=== PATIENT | male | born 1960 | race Caucasian/White ===

== ENCOUNTER 2019-02-14 14:35 | Emergency (ER) | payer BC, OTHER ==
[2019-02-14] MEDS ORDERED: ONDANSETRON 4 MG TAB.RAPDIS PO ONE (15:35)
--- NOTE | 2019-02-14 15:35 | ER Document Report ---
ED Medical Screen (RME) - General Chief Complaint: Lower Abdominal Pain Stated Complaint: PAIN IN RIGHT SIDE Time Seen by Provider: 02/14/19 15:33 Mode of Arrival: Ambulatory Information source: Patient Notes: 58-year-old male presented to ED for complaint of right sided abdominal pain. He states it is a little better now after he went and had a bowel movement and urinated. There is still tenderness to palpation to the right side of his abdomen. He states he has a history of high blood pressure and kidney stones so he was concerned about the pain. Patient states he has had some nausea but no vomiting diarrhea or fever. He states the pain started last night. I have greeted and performed a rapid initial assessment of this patient. A comprehensive ED assessment and evaluation of the patient, analysis of test results and completion of medical decision making process will be conducted by an additional ED providers. Dictation of this chart was performed using voice recognition software; therefore, there may be some unintended grammatical errors. TRAVEL OUTSIDE OF THE [place] IN LAST 30 DAYS: No - Related Data Allergies/Adverse Reactions: No Known Allergies Allergy (Verified 02/14/19 14:40) Past Medical History - Past Medical History Cardiac Medical History: Reports: Hx Hypertension - Elevated blood pressure without specific diagnosis of hypertension Denies: Hx Congestive Heart Failure, Hx DVT, Hx Heart Attack, Hx Hypercholesterolemia, Hx Pulmonary Embolism Pulmonary Medical History: Denies: Hx Asthma, Hx COPD Neurological Medical History: Denies: Hx Seizures Endocrine Medical History: Denies: Hx Diabetes Mellitus Type 1, Hx Diabetes Mellitus Type 2, Hx Hyperthyroidism, Hx Hypothyroidism Renal/ Medical History: Reports: Hx Kidney Stones GI Medical History: Denies: Hx Cirrhosis, Hx Gastroesophageal Reflux Disease, Hx Hepatitis Musculoskeltal Medical History: Denies Hx Arthritis Psychiatric Medical History: Denies: Hx Depression Infectious Medical History: Denies: Hx Hepatitis Physical Exam - Vital signs Vitals: Temp Pulse Resp BP Pulse Ox 98.2 F 64 27 H 153/80 H 97 02/14/19 14:43 02/14/19 14:43 02/14/19 14:43 02/14/19 14:43 02/14/19 14:43 Course - Vital Signs Vital signs: Temp Pulse Resp BP Pulse Ox 98.2 F 64 27 H 153/80 H 97 02/14/19 14:43 02/14/19 14:43 02/14/19 14:43 02/14/19 14:43 02/14/19 14:43
[2019-02-14 16:50] LABS: ABSOLUTE LYMPHOCYTES (AUTO) 1.4 10^3/uL (0.5-4.7); ABSOLUTE MONOCYTES (AUTO) 0.7 10^3/uL (0.1-1.4); ABSOLUTE NEUT (AUTO) 15.8 10^3/uL (1.7-8.2); BASOPHILS % (AUTO) 0.3 % (0-2); HEMATOCRIT 45.5 % (37.9-51.0); LYMPHOCYTES % (AUTO) 7.7 % (13-45); MEAN CORPUSCULAR HEMOGLOBIN 30.4 pg (27.0-33.4); MEAN CORPUSCULAR VOLUME 92 fl (80-97); MONOCYTES % (AUTO) 3.9 % (3-13); PLATELET COUNT 396 10^3/uL (150-450); RED BLOOD COUNT 4.94 10^6/uL (4.35-5.55); RED CELL DISTRIBUTION WIDTH 14.1 % (11.5-14.0); SEGMENTED NEUTROPHILS % (AUTO) 88.1 % (42-78); TOTAL CELLS COUNTED % (AUTO) 100 %; WHITE BLOOD COUNT 17.9 10^3/uL (4.0-10.5)
[2019-02-14 16:54] LABS: APPEARANCE,URINE SLIGHTLY-CLOUDY; BILIRUBIN,URINE NEGATIVE (NEGATIVE); CALCIUM OXALATE CRYSTALS,URINE RARE /HPF; COLOR,URINE YELLOW; GLUCOSE, URINE NEGATIVE (NEGATIVE); KETONES,URINE NEGATIVE (NEGATIVE); LEUKOCYTE ESTERASE,URINE NEGATIVE (NEGATIVE); NITRITE,URINE NEGATIVE (NEGATIVE); PROTEIN,URINE NEGATIVE (NEGATIVE); URINE SPECIFIC GRAVITY 1.016; UROBILINOGEN,URINE NEGATIVE mg/dL (<2.0)
--- NOTE | 2019-02-14 17:08 | ER Document Report ---
ED General - General Chief Complaint: Lower Abdominal Pain Stated Complaint: PAIN IN RIGHT SIDE Time Seen by Provider: 02/14/19 15:33 Primary Care Provider: CASEY CARDOZA PA-C [Primary Care Provider] - Follow up as needed Mode of Arrival: Ambulatory Notes: Patient is a 58-year-old male with history of kidney stones that presents to the emergency department for chief complaint of right-sided abdominal pain. Patient reports that he started having right-sided abdominal pain earlier today that he described as severe, he had associated nausea and vomiting without much relief of his symptoms after vomiting. He states it does feel somewhat different than his prior kidney stones. Denies having any dysuria, but did have urinary frequency. Denies any any fevers, chills, night sweats, diaphoresis. He currently rates his pain as a 2 out of 10 stating that his pain is much improved. He denies having any chest pain, shortness of breath, difficulty breathing. Past Medical History: Kidney stones Past Surgical History: Lithotripsy Social History: Admits to smoking cigarettes, denies alcohol or drug use. Family History: Reviewed and noncontributory for presenting illness Allergies: Reviewed, see documented allergy list. REVIEW OF SYSTEMS: Other than noted above, the 12 point review of systems was reviewed with the patient and were negative, all pertinent findings are included in the HPI. PHYSICAL EXAMINATION: Vital signs reviewed, nursing noted reviewed. GENERAL: Well-appearing, well-nourished and in no acute distress. HEAD: Atraumatic, normocephalic. EYES: Eyes appear normal, extraocular movements intact, sclera anicteric, conjunctiva are normal. ENT: nares patent, oropharynx clear without exudates. Moist mucous membranes. NECK: Normal range of motion, supple without lymphadenopathy LUNGS: Breath sounds clear to auscultation bilaterally and equal. No wheezes rales or rhonchi. HEART: Regular rate and rhythm without murmurs ABDOMEN: Soft, nontender, normoactive bowel sounds. No rebound, guarding, or rigidity. No masses appreciated. EXTREMITIES: Nontender, good range of motion, no pitting or edema. NEUROLOGICAL: No focal neurological deficits. Moves all extremities spontaneously Motor and sensory grossly intact on exam. PSYCH: Normal mood, normal affect. SKIN: Warm, Dry, normal turgor, no rashes or lesions noted on exposed skin TRAVEL OUTSIDE OF THE [place] IN LAST 30 DAYS: No - Related Data Allergies/Adverse Reactions: No Known Allergies Allergy (Verified 02/14/19 14:40) Past Medical History - General Information source: Patient - Social History Smoking Status: Current Some Day Smoker Family History: None, Hypertension, Malignancy Patient has suicidal ideation: No Patient has homicidal ideation: No - Past Medical History Cardiac Medical History: Reports: Hx Hypertension - Elevated blood pressure without specific diagnosis of hypertension Denies: Hx Congestive Heart Failure, Hx DVT, Hx Heart Attack, Hx Hypercholesterolemia, Hx Pulmonary Embolism Pulmonary Medical History: Denies: Hx Asthma, Hx COPD Neurological Medical History: Denies: Hx Seizures Endocrine Medical History: Denies: Hx Diabetes Mellitus Type 1, Hx Diabetes Mellitus Type 2, Hx Hyperthyroidism, Hx Hypothyroidism Renal/ Medical History: Reports: Hx Kidney Stones. Denies: Hx Peritoneal Dialysis GI Medical History: Denies: Hx Cirrhosis, Hx Gastroesophageal Reflux Disease, Hx Hepatitis Musculoskeletal Medical History: Denies Hx Arthritis Psychiatric Medical History: Denies: Hx Depression Infectious Medical History: Denies: Hx Hepatitis Physical Exam - Vital signs Vitals: Temp Pulse Resp BP Pulse Ox 98.2 F 64 27 H 153/80 H 97 02/14/19 14:43 02/14/19 14:43 02/14/19 14:43 02/14/19 14:43 02/14/19 14:43 Course - Re-evaluation Re-evalutation: Patient seen and examined vital signs reviewed. Laboratory data and/or imaging were ordered as appropriate for the patient's presenting symptoms and complaint, with consideration of any critical or life threatening conditions that may be associated with their obtained history and exam as noted above. Results were reviewed when available and demonstrated recently passed stone in the bladder, or at the UVJ, noted to have leukocytosis, patient's pain was controlled, he declined any need for pain medication on my evaluation. The patient was re-evaluated and was stable, pain was still controlled Evaluation was most consistent with ureteral stone, recently passed, mild hydronephrosis, without significant kidney injury, no evidence of infection on urinalysis, but did have hematuria, will discharge the patient home on Flomax and advised to follow-up with his urologist. Results were discussed with the patient at this point, after careful considera tion I feel that that patient can be discharged from the emergency department, the patient was educated treatments and reasons to return to the emergency department based on their presumed diagnosis as noted above, they were advised to followup with a primary care physician in 2-3 days. Patient was agreeable to plan of care. *Note is created using voice recognition software and may contain spelling, syntax or grammatical errors. Laboratory 02/14/19 02/14/19 02/14/19 15:15 16:20 16:20 WBC 17.9 H RBC 4.94 Hgb 15.0 Hct 45.5 MCV 92 MCH 30.4 MCHC 33.0 RDW 14.1 H Plt Count 396 Seg Neutrophils % 88.1 H Lymphocytes % 7.7 L Monocytes % 3.9 Eosinophils % 0.0 Basophils % 0.3 Absolute Neutrophils 15.8 H Absolute Lymphocytes 1.4 Absolute Monocytes 0.7 Absolute Eosinophils 0.0 Absolute Basophils 0.0 Sodium 143.7 Potassium 3.9 Chloride 104 Carbon Dioxide 26 Anion Gap 14 BUN 17 Creatinine 1.40 H Est GFR ( Amer) > 60 Est GFR (Non-Af Amer) 52 L Glucose 108 Calcium 10.5 H Total Bilirubin 0.9 Direct Bilirubin 0.3 Neonat Total Bilirubin Not Reportable Neonat Direct Bilirubin Not Reportable Neonat Indirect Bili Not Reportable AST 26 ALT 25 Alkaline Phosphatase 79 Total Protein 8.0 Albumin 5.0 Urine Color YELLOW Urine Appearance SLIGHTLY-CLOUDY Urine pH 5.0 Ur Specific Mcdonald 1.016 Urine Protein NEGATIVE Urine Glucose (UA) NEGATIVE Urine Ketones NEGATIVE Urine Blood LARGE H Urine Nitrite NEGATIVE Urine Bilirubin NEGATIVE Urine Urobilinogen NEGATIVE Ur Leukocyte Esterase NEGATIVE Urine WBC (Auto) 5 Urine RBC (Auto) >182 Squamous Epi Cells Auto <1 Calcium Oxalate Cr Auto RARE Urine Mucus (Auto) FEW Urine Ascorbic Acid 20 H Abdomen/Pelvis CT 02/14/19 17:16 IMPRESSION: 1. Small intrarenal calculi in the right kidney. Right hydro nephrosis and hydroureter. 3 mm calculus that is either in the bladder or in the intramural portion of the right ureter. 2. Large nonobstructing left renal calculi. 3. Diverticulosis coli. - Vital Signs Vital signs: Temp Pulse Resp BP Pulse Ox 98.3 F 68 19 149/81 H 97 02/14/19 18:56 02/14/19 18:56 02/14/19 18:56 02/14/19 18:56 02/14/19 14:43 - Laboratory Result Diagrams: 02/14/19 16:20 02/14/19 16:20 Laboratory results interpreted by me: 02/14/19 02/14/19 02/14/19 15:15 16:20 16:20 WBC 17.9 H RDW 14.1 H Seg Neutrophils % 88.1 H Lymphocytes % 7.7 L Absolute Neutrophils 15.8 H Creatinine 1.40 H Est GFR (Non-Af Amer) 52 L Calcium 10.5 H Urine Blood LARGE H Urine Ascorbic Acid 20 H Discharge - Discharge Clinical Impression: Ureteral stone Leukocytosis Qualifiers: Leukocytosis type: unspecified Qualified Code(s): D72.829 - Elevated white b lood cell count, unspecified Hematuria Qualifiers: Hematuria type: unspecified type Qualified Code(s): R31.9 - Hematuria, u nspecified Condition: Stable Disposition: HOME, SELF-CARE Instructions: Kidney Stone ([facility]) Additional Instructions: Please start taking the Flomax to help facilitate the passing of your kidney stone, please follow-up with your urologist as well. Prescriptions: Tamsulosin HCl [Flomax] 0.4 mg PO DAILY #14 cap.er.24h Referrals: CASEY CARDOZA PA-C [Primary Care Provider] - Follow up as needed
[2019-02-14 17:15] LABS: ALANINE AMINOTRANSFERASE 25 U/L (21-72); ALKALINE PHOSPHATASE 79 U/L (38-126); ANION GAP 14 (5-19); ASPARTATE AMINO TRANSFERASE 26 U/L (17-59); BILIRUBIN,DIRECT 0.3 mg/dL (0.0-0.4); BILIRUBIN,TOTAL 0.9 mg/dL (0.2-1.3); BLOOD UREA NITROGEN 17 mg/dL (7-20); CALCIUM 10.5 mg/dL (8.4-10.2); CARBON DIOXIDE 26 mmol/L (22-30); CHLORIDE 104 mmol/L (98-107); GLUCOSE 108 mg/dL (75-110); POTASSIUM 3.9 mmol/L (3.6-5.0); SODIUM 143.7 mmol/L (137-145)
--- NOTE | 2019-02-14 18:06 | RADIOLOGY REPORT (SQ) ---
EXAM DESCRIPTION: CT ABD/PELVIS NO ORAL OR IV COMPLETED DATE/TIME: 02/14/2019 5:23 pm REASON FOR STUDY: RIGHT FLANK PAIN, HX KIDNEY STONES COMPARISON: None. TECHNIQUE: CT scan of the abdomen and pelvis performed without intravenous or oral contrast. Images reviewed with lung, soft tissue, and bone windows. Reconstructed coronal and sagittal MPR images revi ewed. All images stored on PACS. All CT scanners at this facility use dose modulation, iterative reconstruction, and/or weight based d osing when appropriate to reduce radiation dose to as low as reasonably achievable (ALARA). [facility]: Dose Right [facility]: CareDose [facility]: Dose Right [facility]: Teradose 4D [facility]: Smart Daio RADIATION DOSE: CT Rad equipment meets quality standard of care and radiation dose reduction techniq ues were employed. CTDIvol: 10.8 mGy. DLP: 582 mGy-cm.mGy. LIMITATIONS: None. FINDINGS: LOWER CHEST: No significant findings. No nodules or infiltrates. NON-CONTRASTED LIVER, SPLEEN, ADRENALS: Evaluation limited by lack of IV contrast. No identified sign ificant masses. PANCREAS: No masses. No peripancreatic inflammatory changes. GALLBLADDER: No identified stones by CT criteria. No inflammatory changes to suggest cholecystitis. RIGHT KIDNEY AND URETER: Surgical changes. Tiny intrarenal calculi. Hydronephrosis. There is a 3 m m calculus that is either in the bladder or in the intramural portion of the right ureter. See image 76 series 3. LEFT KIDNEY AND URETER: There are some prominent intrarenal calculi. No hydronephrosis or hydrourete r. AORTA AND RETROPERITONEUM: No aneurysm. No retroperitoneal masses or adenopathy. BOWEL AND PERITONEAL CAVITY: Descending and sigmoid diverticulosis. No associated inflammation. No obvious bowel mass. APPENDIX: Normal. PELVIS, BLADDER, AND ABDOMINAL WALL:Calcification as described under right kidney, above. No pelvic mass or fluid collection. BONES: No significant findings. OTHER: No other significant finding. IMPRESSION: 1. Small intrarenal calculi in the right kidney. Right hydronephrosis and hydroureter. 3 mm calculus that is either in the bladder or in the intramural portion of the right ureter. 2. Large nonobstructing left renal calculi. 3. Diverticulosis coli. COMMENT: Quality ID # [id number]: Final reports with documentation of one or more dose reduction techniques (e.g., Automated exposure control, adjustment of the mA and/or kV according to patient size, use of iterative reconstruction technique) TECHNICAL DOCUMENTATION: JOB ID: [id number] [employer]- All Rights Reserved Reading location - IP/workstation name: [email or web address]
[2019-02-14 18:58] VITALS: BP 149/81
== END 2019-02-14 18:56 | disposition home or self-care (01) ==
LOC: ER 14:35
DX: N20.1 Calculus of ureter (principal); D72.829 Elevated white blood cell count, unspecified; R31.9 Hematuria, unspecified; R10.30 Lower abdominal pain, unspecified; F17.210 Nicotine dependence, cigarettes, uncomplicated; Z87.442 Personal history of urinary calculi
CPT/HCPCS: 99284; 36415; 85025; 80053; 81001; 74176; S0119